=== PATIENT | female | born 1965 | race Two or more races ===

== ENCOUNTER 2022-02-04 15:59 | Inpatient (IN) | payer OTHER ==
[~2022-02-04] VITALS: Ht 165.1 cm; Wt 49.9 kg
--- NOTE | 2022-02-04 01:04 | NUR ---
Pt arrived on floor transported via ED gurney by ED fire extinguisher charger Albert without incident. Pt accompanied by . Thorough report was given to me by Armin using SBAR method. Armin was given green light to transfer pt. Upon initial eval, pt had good color and appearance, aaox4, completely lucid and with it. Can follow commands, answer questions, and carry a conversation. Pt is very pleasant and respectful. strong and equal epic cupid analyst strength bilat, good distal pulses x 4ext. can lift legs off of bed with ease, can lift arms without drift. lungs ctab, NSR without ectopy, RRR, normal s1s2 no m/g/r. Active bowl sounds [id number]. Pt is complaining of 9/10 Lt flank pain with movement, 5/10 at rest. she also feels 8/10 nauseated. Call placed to Provider Jn, due to pt not having any meds ordered. Provider Jn promptly replied with a med order for pain and nausea. Pt will be getting the meds right now. Provider also ordered Pt NPO til tomorrow morning p diagnostics . Pt has no s/sx of distress present.
[2022-02-04] MEDS ORDERED: PANTOPRAZOLE SODIUM IV 80 MG in IV DEXTROSE 5% 100 ML IV ONE (16:15)
[2022-02-04] MEDS ORDERED: ONDANSETRON 4 MG/2 ML VIAL IV ONE ×2 (16:15→18:30)
[2022-02-04] MEDS ORDERED: IV NORMAL SALINE 1000 ML BAG IV ONE ×2 (16:15→18:30)
[2022-02-04] MEDS ORDERED: PANTOPRAZOLE SODIUM IV 80 MG in IV DEXTROSE 5% 500 ML IV ONE (16:15)
[2022-02-04] MEDS ORDERED: ONDANSETRON 4 MG/2 ML VIAL ONE ×2 (16:26→18:18)
[2022-02-04 16:38] LABS: HEMATOCRIT 30.3 % (31.2-41.9); MEAN CORPUSCULAR HEMOGLOBIN 30.6 uug (24.7-32.8); MEAN CORPUSCULAR VOLUME 91.6 fL (75.5-95.3); PLATELET COUNT (AUTO) 121 K/uL (179-408)
--- NOTE | 2022-02-04 16:42 | NUR ---
PT IS IN ROOM #2B. DR BULLOCK EVALUATED THE PT.
[2022-02-04 16:43] LABS: CREATININE 0.7 mg/dL (0.6-1.3); POTASSIUM 3.2 mmol/L (3.5-5.1)
[2022-02-04 16:49] LABS: BILIRUBIN,DIRECT 0.1 mg/dL (0.0-0.2); BILIRUBIN,TOTAL 0.5 mg/dL (0.2-1.0); TOTAL PROTEIN, SERUM 6.4 g/dL (6.4-8.2)
--- NOTE | 2022-02-04 20:53 | NUR ---
Dr. Law speaking with Dr. Silva of [place].
[2022-02-04 22:19] LABS: HEMATOCRIT 24.2 % (31.2-41.9); MEAN CORPUSCULAR HEMOGLOBIN 30.7 uug (24.7-32.8); MEAN CORPUSCULAR VOLUME 90.7 fL (75.5-95.3); PLATELET COUNT (AUTO) 109 K/uL (179-408)
[2022-02-05] VITALS (18 sets, daily range): BP systolic 103–164; BP diastolic 53–86
--- NOTE | 2022-02-05 00:20 | NUR ---
Dr. Law on panel call with Sarahy Ragsdale NP. Patient accepted for admission to [facility], diagnosis: GI Bleed.
--- NOTE | 2022-02-05 00:27 | NUR ---
Report given to Rosalee HAYNES Tele.
[2022-02-05] MEDS ORDERED: ONDANSETRON INJ 8 MG in IV NORMAL SALINE 50 ML IV PRN (02:30)
[2022-02-05] MEDS ORDERED: HYDROMORPHONE 1 MG/1 ML DISP.SYRIN IV PRN ×2 (02:30→09:30)
[2022-02-05] MEDS ORDERED: ONDANSETRON 4 MG/2 ML VIAL ONE (02:42)
[2022-02-05] MEDS ORDERED: ONDANSETRON 4 MG/2 ML VIAL IV PRN ×2 (02:45→05:45)
--- NOTE | 2022-02-05 04:40 | NUR ---
Pt states feeling much better after the dilaudid, however, she is still having difficulty sleeping and expressed interest in getting a sedative or sleep aid to help her get some rest. I suggested that we wait 20-30 min and see how if the dilaudid might make her drowsy, but I also let her know that if she feels that she really needs a sedative, I will call and ask the provider. She agreed. However, when I just walked into pt room, she woke up immediately, meaning she was wide awake. She is also still running a low grade FV since arriving on floor, and feels warm to touch, cooling measures started by switching her blanket to a sheet. Will call provider to ask if anti-pyretic is necessary. No s/sx of distress.
--- NOTE | 2022-02-05 05:00 | NUR ---
Provider Jn decided that pt's temp was not high enough to warrant being given an anti-pyretic. but that if the issue persists or if the temp increases or if the pt may want it for comfort, Provider Jn did give permission to given pt an APAP suppository if needed. However, it apparently was not needed for when I checked on the pt to tell her that I can give her APAP if she would like some to bring down her low grade FV, she was sound asleep with audible snoring.
[2022-02-05] MEDS ORDERED: IV NS 1000 ML 1,000 ML IV PRN (05:45)
[2022-02-05 06:53] LABS: HEMATOCRIT 23.7 % (31.2-41.9); MEAN CORPUSCULAR HEMOGLOBIN 30.8 uug (24.7-32.8); MEAN CORPUSCULAR VOLUME 90.9 fL (75.5-95.3); PLATELET COUNT (AUTO) 112 K/uL (179-408)
[2022-02-05 07:01] LABS: CREATININE 0.7 mg/dL (0.6-1.3); POTASSIUM 4.1 mmol/L (3.5-5.1)
--- NOTE | 2022-02-05 08:15 | NUR ---
RECEIVED PATIENT IN BED AWAKE ALERT AND ORIENTED DENIES PAIN OR DISCOMFORTS AT THIS TIME NO DIET ORDERS AT THIS TIME SO I CALLED DR ROD AND LEFT HIM A MESSAGE AWAITING FOR ORDERS.
--- NOTE | 2022-02-05 08:26 | NUR ---
DR RODRIGUEZ RETURNED CALL AND STATED TO KEEP PATIENT NPO AND TO CHANGE HER IVF TO D5NS AND STATED THAT DR JUSTYN LOCKHART WILL SEE PATIENT TODAY. PATIENT NOTIFIED
[2022-02-05] MEDS: PANTOPRAZOLE SODIUM 40 MG VIAL IV SCH ×2 (09:09→20:02)
[2022-02-05] MEDS: IV D5/ 0.9% NACL 1,000 ML IV PRN ×2 (09:29→18:15)
--- NOTE | 2022-02-05 09:30 | NUR ---
CALL RECEIVED FROM THE OR NURSE STATED THAT DR ALEJANDRA HAD CALLED THEM AND THAT THE PLAN IS THAT PATIENT WILL [facility]ERGO ENDOSCOPY TODAY AT 1300 PATIENT NOTIFIED STATED WILL AWAIT FOR THE DOCTOR TO ADVISE HER.
[2022-02-05] MEDS: levoFLOXacin 500 MG/D5W 500 MG in PREMIXED 1 EACH IV SCH (10:34)
[2022-02-05] MEDS ORDERED: HYDR200T81 PO (11:01)
[2022-02-05] MEDS ORDERED: [UNRECOGNIZED DRUG - OTHER] (11:04)
[2022-02-05] MEDS ORDERED: URSO500T10 PO (12:30)
[2022-02-05] MEDS ORDERED: CHOL10005 PO (12:33)
--- NOTE | 2022-02-05 12:40 | NUR ---
OR NURSES HERE PATIENT PICKED UP BY BED TO OR FOR PROCEDURE ORDERED PATIENT IS ALERT ORIENTED REMAINS NPO AT THIS TIME. AT THE BEDSIDE
[2022-02-05] MEDS ORDERED: MIDAZOLAM HCL 10 MG/2 ML VIAL ONE (13:42)
[2022-02-05] MEDS: METRONIDAZOLE 500 MG/NS 100ML 500 MG in PREMIXED 1 EACH IV SCH ×2 (14:00→21:40)
[2022-02-05] MEDS ORDERED: PROPOFOL 100 ML IV PRN (14:15)
--- NOTE | 2022-02-05 15:29 | NUR ---
Patient in at this time via bed from recovery room, accompanied by nurses. Pt. received intubated, ETT 7.0, 20 LL on A/C 14, tv400. and IO2 50%. propofol running at 30mcg/kg/min. patient restless moving and with gag and cough reflex present. propofol increased for adequate sedation. . Hr of 103, sbp of 131/86. Iv line patent. Will continue with care plan.
[2022-02-05] MEDS ORDERED: NOREPINEPHRINE BITARTRATE 8 MG in IV NORMAL SALINE 242 ML IV PRN (15:30)
--- NOTE | 2022-02-05 15:40 | NUR ---
Attending physician in the unit and order to bolus 500cc Ns received. Also orders for gibbs catheter.
[2022-02-05] MEDS ORDERED: IV NS 1000 ML 1,000 ML IV ONE (16:00)
[2022-02-05] MEDS: PROPOFOL 100 ML IV PRN ×2 (16:11→20:02)
--- NOTE | 2022-02-05 16:25 | NUR ---
and family at bedside at this time updated on on pt's current condition.
[2022-02-05 17:13] LABS: ABG HCO3 17.9 mmol/L; ABG PCO2 26.1 mmHg (35.0-45.0); ABG PH 7.455 (7.350-7.450); ABG PO2 106.4 mmHg (75.0-100.0); ABG SITE LEFT RADIAL; ABG TOTAL HEMOGLOBIN 8.8 G/dL (12.0-16.0); COHb 0.3 % (0.5-1.5); MetHb 0.3 % (0.0-1.5); O2Hb 97.1 % (94.0-97.0); VENT MODE VENT - A/C14; VT, ABG 400 mL
[2022-02-05] MEDS ORDERED: LIDOCAINE-MPF 2% 5 ML VIAL IJ ONE (17:16)
[2022-02-05] MEDS ORDERED: PROPOFOL 200 MG/20 ML BOTTLE IV ONE (17:16)
[2022-02-05] MEDS ORDERED: GLYCOPYRROLATE 0.2 MG/ML VIAL IJ ONE (17:16)
[2022-02-05] MEDS: OCTREOTIDE ACETATE DRIP 500 MCG in IV NORMAL SALINE 99 ML IV PRN (17:54)
--- NOTE | 2022-02-05 18:12 | NUR ---
PT REC'D IN PACU ORALLY INTUBATED, PLACED TO VENT WITH SETTINGS GIVEN VERBALLY BY ANESTHESIOLOGIST. PT TOLERATING SETTINGS WELL, ABG'S DRAWN IN ICU AND REPORTED. CONT TO MONITOR AND REPORT ANY CHANGES.
[2022-02-05 19:01] LABS: HEMATOCRIT 27.5 % (31.2-41.9)
--- NOTE | 2022-02-05 20:36 | NUR ---
called jennifer RODRIGUEZ made aware of patient H/H (9.2/.5) no active bleeding noted . jennifer RODRIGUEZ said to hold the 2nd unit of prbc .
--- NOTE | 2022-02-05 23:00 | NUR ---
increase propofol noted patient left hand reaching to the ETT.continue to monitor sedation level .
--- NOTE | 2022-02-05 23:26 | NUR ---
PATIENT RECEIVED INTUBATED ON A MECHANICAL VENTILATOR WITH A SIZE 7.0 ET TUBE AT APPROX 20CM AT THE LIP. ET TUBE IS SECURED WITH ANCHOR FAST. PATIENT IS ON THE FOLLOWING SETTINGS THAT ARE CHARTED ON THE MECHANICAL VENTILATOR NOTES. SUCTIONED Q2. ALARMS CHECKED AND THEY ARE ON AND AUDIBLE. NO SOB NOTED AT THIS TIME. WILL CONTINUE TO MONITOR.
[2022-02-06] VITALS (24 sets, daily range): BP systolic 86–154; BP diastolic 54–82
[2022-02-06] MEDS: PROPOFOL 100 ML IV PRN ×2 (01:06→05:50)
[2022-02-06] MEDS: OCTREOTIDE ACETATE DRIP 500 MCG in IV NORMAL SALINE 99 ML IV PRN ×3 (01:54→20:32)
--- NOTE | 2022-02-06 04:00 | NUR ---
patient had a low grade temp ,bath patient with cold water , changed soiled linens gown, Christopher care and oral care done .turned and reposition pt.
[2022-02-06 05:21] LABS: HEMATOCRIT 27.6 % (31.2-41.9); MEAN CORPUSCULAR HEMOGLOBIN 30.2 uug (24.7-32.8); PLATELET COUNT (AUTO) 94 K/uL (179-408)
[2022-02-06 05:37] LABS: BILIRUBIN,TOTAL 0.6 mg/dL (0.2-1.0); CREATININE 0.7 mg/dL (0.6-1.3); MAGNESIUM 1.5 mg/dL (1.8-2.4); PHOSPHOROUS 2.5 mg/dL (2.5-4.9); POTASSIUM 3.3 mmol/L (3.5-5.1); TOTAL PROTEIN, SERUM 5.9 g/dL (6.4-8.2)
[2022-02-06] MEDS: METRONIDAZOLE 500 MG/NS 100ML 500 MG in PREMIXED 1 EACH IV SCH ×3 (05:46→21:21)
--- NOTE | 2022-02-06 06:00 | NUR ---
rechecked temp 99.3 F ,ICE PACKS placed to patient bilateral armpit and groin area . will continue to monitor v/s .
[2022-02-06] MEDS ORDERED: ACETAMINOPHEN 650 MG SUPP.RECT RC PRN (07:00)
--- NOTE | 2022-02-06 07:00 | NUR ---
Received pt. on Ventilator A/C14, TV 400 FIO2 of 30% patient adequately sedated. On NSR sbp within desire limits. Christopher to gravity, IV lines patent. Will continue with care plan.
[2022-02-06] MEDS: PANTOPRAZOLE SODIUM 40 MG VIAL IV SCH ×2 (08:14→20:10)
--- NOTE | 2022-02-06 08:55 | NUR ---
Pulmonary services, in the unit and as ordered propofol off completely for weaning trial.
--- NOTE | 2022-02-06 09:03 | NUR ---
Patient fully awake following commands, and CPAP with PSV 10 started at this time saturation of 99%. no tachypnea noted.
--- NOTE | 2022-02-06 09:10 | NUR ---
At this time pt. extubated and placed on NC 2 Liters patient stable, HR of 70 sbp of 119/64. patient calm cooperative, saturation of 100%.
[2022-02-06] MEDS: MAGNESIUM SULFATE/D5W 100 ML IV SCH ×3 (09:20→10:12)
[2022-02-06] MEDS: IV D5/ 0.9% NACL 1,000 ML IV PRN (09:29)
[2022-02-06] MEDS: levoFLOXacin 500 MG/D5W 500 MG in PREMIXED 1 EACH IV SCH (09:36)
[2022-02-06] MEDS: POTASSIUM CHLORIDE 50 ML IV SCH ×2 (11:06→12:38)
--- NOTE | 2022-02-06 12:00 | NUR ---
Attending physician Dr. Humphrey Olivia in the unit to see and examine pt. report given, orders to continue with care plan received.
[2022-02-06] MEDS ORDERED: KETOROLAC TROMETHAMINE 15 MG INJ IVP ONE (16:00)
[2022-02-07] VITALS (9 sets, daily range): BP systolic 92–106; BP diastolic 41–53
--- NOTE | 2022-02-07 00:05 | NUR ---
Telephone report given to Jag Hawkins All systems covered. Patient latest vitals HR of 92 sbp of 90/56, rr 18. ML RUE patent. Patient awaiting to be pickler helper.and taken to room 304.
--- NOTE | 2022-02-07 00:33 | NUR ---
pt was picked up from CCU-5 and transferred to room 304; treatment continued; VS as charted; will continue to monitor.
[2022-02-07] MEDS: IV D5/ 0.9% NACL 1,000 ML IV PRN ×2 (02:21→15:24)
[2022-02-07] MEDS: METRONIDAZOLE 500 MG/NS 100ML 500 MG in PREMIXED 1 EACH IV SCH ×3 (05:02→21:05)
[2022-02-07 07:06] LABS: CREATININE 0.6 mg/dL (0.6-1.3); POTASSIUM 3.5 mmol/L (3.5-5.1)
--- NOTE | 2022-02-07 08:00 | NUR ---
AWAKE ALERT AND ORIENTED X3 DENIES PAIN OR SOB, MAINTAINED NPO ORDERED WITH IVF/SANDOSTATIN. BEDREST OBSERVED
[2022-02-07] MEDS: OCTREOTIDE ACETATE DRIP 500 MCG in IV NORMAL SALINE 99 ML IV PRN ×2 (08:12→17:03)
[2022-02-07] MEDS: PANTOPRAZOLE SODIUM 40 MG VIAL IV SCH ×2 (08:12→21:05)
[2022-02-07] MEDS: levoFLOXacin 500 MG/D5W 500 MG in PREMIXED 1 EACH IV SCH (09:26)
--- NOTE | 2022-02-07 12:00 | NUR ---
NO ACUTE CHANGE FROM AM ASSESSMENT
--- NOTE | 2022-02-07 13:47 | NUR ---
NO SIGNS OF ACTIVE BLEEDING. KEPT NPO WITH IVF AND SANDOSTATIN IV. SR/ST ON MONITOR
--- NOTE | 2022-02-07 18:52 | NUR ---
SEEN BY HOSPITALIST ADVISE TO CONTINUE TX PLAN. SR ON MONITOR
--- NOTE | 2022-02-07 20:00 | NUR ---
Received patient lying in bed. AAOX4. Family at bedside. In no apparent distress. Denies any pain or SOB. O2 sat at 94% on RA. Midline on right upper arm intact and patent. IVF infusing as well as Sandostatin. NPO status. NSR on tele with HR of 89/min. Christopher catheter intact and draining via gravity. Temp orally 99.7. Cooling measure provided. Will continue to monitor. Safety measure initiated and call light within reached.
[2022-02-08] VITALS: BP 104/52
[2022-02-08 00:01] VITALS: BP 104/52
[2022-02-08] MEDS: OCTREOTIDE ACETATE DRIP 500 MCG in IV NORMAL SALINE 99 ML IV PRN ×2 (01:30→13:22)
[2022-02-08 04:00] VITALS: BP_SYST 104; BP_SYST 106; BP_DIAS 52; BP_DIAS 53
[2022-02-08] MEDS: IV D5/ 0.9% NACL 1,000 ML IV PRN ×2 (05:00→23:06)
[2022-02-08] MEDS: METRONIDAZOLE 500 MG/NS 100ML 500 MG in PREMIXED 1 EACH IV SCH ×3 (05:01→21:14)
--- NOTE | 2022-02-08 05:55 | NUR ---
Patient slept well during the night. In no acute distress. Denies any pain or SOB. O2 sat at 94% on RA. Midline on right upper arm intact and patent. IVF infusing as well as Sandostatin. No adverse effect noted from IV antibiotics. Remains NPO. NSR on tele with HR of 82/min. Christopher catheter intact and draining via gravity. Afebrile. Needs attended to and met. Safety measure maintained and call light within reached.
[2022-02-08 06:21] LABS: HEMATOCRIT 23.9 % (31.2-41.9); MEAN CORPUSCULAR HEMOGLOBIN 30.8 uug (24.7-32.8); MEAN CORPUSCULAR VOLUME 90.9 fL (75.5-95.3); PLATELET COUNT (AUTO) 84 K/uL (179-408)
[2022-02-08 06:40] LABS: CREATININE 0.5 mg/dL (0.6-1.3); MAGNESIUM 1.7 mg/dL (1.8-2.4); PHOSPHOROUS 2.6 mg/dL (2.5-4.9); POTASSIUM 3.5 mmol/L (3.5-5.1)
[2022-02-08 08:00] VITALS: BP 95/51
--- NOTE | 2022-02-08 08:00 | NUR ---
AWAKE ALERT AND ORIENTED X3 DENIES PAIN, N/V, SOB. CONTINUE WITH NPO IVF AND SANDOSTATIN. NO SIGNS OF ACTIVE BLEEDING. SR ON MONITOR
[2022-02-08] MEDS: PANTOPRAZOLE SODIUM 40 MG VIAL IV SCH ×2 (08:37→20:24)
[2022-02-08] MEDS: levoFLOXacin 500 MG/D5W 500 MG in PREMIXED 1 EACH IV SCH (09:13)
[2022-02-08] MEDS: MAGNESIUM SULFATE/D5W 100 ML IV SCH ×2 (10:11→10:55)
--- NOTE | 2022-02-08 10:28 | NUR ---
HOSPITALIST NOTED LOW MAGNESIUM WITH REPLACEMENT 2GMS IV
--- NOTE | 2022-02-08 13:42 | NUR ---
TRIED TO REACH GI DOCTOR RE:FAMILY WANTS TO KNOW PLAN OF CARE. MESSAGE LEFT WITH THE SERVICE
[2022-02-08 16:00] VITALS: BP 124/55
[2022-02-08 20:00] VITALS: BP 121/50
--- NOTE | 2022-02-08 20:00 | NUR ---
Received patient lying in bed. AAOX4. In no apparent distress. Denies any pain. Complain of mild SOB when speaking. O2 sat at 89-91% on RA. Applied O2 at 1LPM via NC. O2 sat up to 98% with O2 at 1LPM via NC. Midline on right upper arm intact and patent. IVF and Sandostatin infusing. Remains NPO. NSR on tele with HR of 81/min. Christopher catheter intact and draining via gravity. Safety measure initiated and call light within reached.
[2022-02-09] VITALS: BP 108/55
[2022-02-09] MEDS: OCTREOTIDE ACETATE DRIP 500 MCG in IV NORMAL SALINE 99 ML IV PRN ×2 (00:50→10:04)
[2022-02-09 04:00] VITALS: BP 101/53
[2022-02-09] MEDS: METRONIDAZOLE 500 MG/NS 100ML 500 MG in PREMIXED 1 EACH IV SCH ×3 (05:17→21:00)
--- NOTE | 2022-02-09 06:22 | NUR ---
Patient slept well during the night. No complain of pain or SOB. Remains on O2 at 1LPM via NC. O2 sat at 99%. Midline on right upper arm intact and patent. IVF and Sandostatin continue to infuse. NO adverse reaction noted form IV antibiotic. Remains NPO. NSR on tele with HR of 73/min. Christopher catheter intact and draining via gravity. Safety measure maintained and call light within reached.
[2022-02-09 06:51] LABS: HEMATOCRIT 24.1 % (31.2-41.9); MEAN CORPUSCULAR HEMOGLOBIN 31.2 uug (24.7-32.8); MEAN CORPUSCULAR VOLUME 91.6 fL (75.5-95.3); PLATELET COUNT (AUTO) 95 K/uL (179-408)
[2022-02-09 07:05] LABS: CREATININE 0.6 mg/dL (0.6-1.3); MAGNESIUM 1.8 mg/dL (1.8-2.4); PHOSPHOROUS 3.1 mg/dL (2.5-4.9); POTASSIUM 3.5 mmol/L (3.5-5.1)
[2022-02-09] MEDS: PANTOPRAZOLE SODIUM 40 MG VIAL IV SCH ×2 (09:07→20:16)
[2022-02-09] MEDS: levoFLOXacin 500 MG/D5W 500 MG in PREMIXED 1 EACH IV SCH (09:08)
[2022-02-09 12:14] VITALS: BP 114/54
[2022-02-09] MEDS: IV D5/ 0.9% NACL 1,000 ML IV PRN (15:45)
[2022-02-09 15:53] VITALS: BP 121/47
[2022-02-09 20:00] VITALS: BP 123/55
[2022-02-10 00:21] VITALS: BP 113/55
[2022-02-10 04:39] VITALS: BP 105/57
--- NOTE | 2022-02-10 05:14 | NUR ---
Pt slept throughout the night. Denies pain or SOB. Titrated to RA, no distress noted. IV site intact, running ordered fluids. Able to make needs known. Tolerating clear liquid diet. Safety maintained. Will endorse to day shift.
[2022-02-10] MEDS: METRONIDAZOLE 500 MG/NS 100ML 500 MG in PREMIXED 1 EACH IV SCH (05:55)
[2022-02-10] MEDS: IV D5/ 0.9% NACL 1,000 ML IV PRN (05:55)
[2022-02-10 07:26] LABS: HEMATOCRIT 24.7 % (31.2-41.9); MEAN CORPUSCULAR HEMOGLOBIN 30.8 uug (24.7-32.8); MEAN CORPUSCULAR VOLUME 90.3 fL (75.5-95.3); PLATELET COUNT (AUTO) 94 K/uL (179-408)
[2022-02-10 07:36] LABS: CREATININE 0.6 mg/dL (0.6-1.3); MAGNESIUM 1.6 mg/dL (1.8-2.4); POTASSIUM 3.1 mmol/L (3.5-5.1)
[2022-02-10] MEDS: PANTOPRAZOLE SODIUM 40 MG VIAL IV SCH (09:08)
[2022-02-10] MEDS: levoFLOXacin 500 MG/D5W 500 MG in PREMIXED 1 EACH IV SCH (09:09)
[2022-02-10] MEDS ORDERED: MAGNESIUM OXIDE 400 MG TABLET PO ONE (10:45)
[2022-02-10] MEDS: POTASSIUM CHLORIDE 20 MEQ POWDER PACKET PO SCH ×2 (11:16→14:46)
[2022-02-10 11:36] VITALS: BP 110/56
[2022-02-10 16:00] VITALS: BP 119/63
--- NOTE | 2022-02-10 16:36 | NUR ---
Plan is to discharge pt home today. Gibbs catheter has been removed, pt able to urinate on her own. 1600cc emptied from gibbs catheter. IV removed, pt is a/o x 4, agreeable and ready for discharge. pending orders from
[2022-02-10] MEDS ORDERED: METR500T PO (16:45)
[2022-02-10] MEDS ORDERED: LEVO500T90 PO (16:45)
[2022-02-10] MEDS ORDERED: PANT40TA2 PO (16:45)
--- NOTE | 2022-02-10 17:24 | NUR ---
pt has been discharged, all personal belongings taken by . Pt is going home, lives with family and will have help. IV and ID removed. Discharge education given to pt and family at bedside. Diet explained and medication routine explained. Pt has no further questions at this time. Advised to follow up with PCP for follow up EGD in three months per MD discussion.
[2022-02-10] MEDS ORDERED: METRONIDAZOLE 500 MG TABLET PO SCH (22:00)
[2022-02-11] MEDS ORDERED: levoFLOXacin 500 MG TABLET PO SCH (06:00)
== END 2022-02-10 17:35 | disposition home or self-care (01) | DRG 369 ==
LOC: ER 16:02 → TELE3 02-05 00:33 → CCU 02-05 15:30 → TELE-TD3 02-07 00:18 → TELE3 02-08 10:11
PROVIDERS: ADMIT Internal Medicine; ATTEND Nurse Practitioner Acute Care
PROC: 06L38CZ Occlusion of Esophageal Vein with Extraluminal Device, Via Natural or Artificial Opening Endoscopic (ICD-10-PCS; principal; 2022-02-05)
PROC: 30233N1 Transfusion of Nonautologous Red Blood Cells into Peripheral Vein, Percutaneous Approach (ICD-10-PCS; 2022-02-05)
PROC: 05H533Z Insertion of Infusion Device into Right Subclavian Vein, Percutaneous Approach (ICD-10-PCS; 2022-02-06)
PROC: B546ZZA Ultrasonography of Right Subclavian Vein, Guidance (ICD-10-PCS; 2022-02-06)
DX: I85.01 Esophageal varices with bleeding (principal); D62 Acute posthemorrhagic anemia; E44.0 Moderate protein-calorie malnutrition; K76.6 Portal hypertension; Z68.1 Body mass index [BMI] 19.9 or less, adult; K92.0 Hematemesis; E86.1 Hypovolemia; E87.6 Hypokalemia; M34.9 Systemic sclerosis, unspecified; D69.6 Thrombocytopenia, unspecified; R55 Syncope and collapse; G35 Multiple sclerosis; K52.3 Indeterminate colitis; Z20.822 Contact with and (suspected) exposure to COVID-19; K74.3 Primary biliary cirrhosis
CPT/HCPCS: 36415; 36600; 70450; 71045; 83690; 83735; 84100; 85018; 85025; 85730; 86850; 86900; 86901; 86920; 93005; 94002; 94003; A4663; C9113; G0378; J1170; J1885; J1956; J2250; J2354; J2405; J3475; J3480; J3490; J7040; J7042; J7060; J7120; P9016